=== PATIENT | female | born 1990 | race Caucasian/White ===

== ENCOUNTER 2024-11-05 02:38 | Emergency (ER) | payer OTHER, SELFPAY ==
[2024-11-05 02:43] VITALS: BP 129/88; PULSE 102; RESP 20; TEMP 35.9; O2SAT 99; BMI 30.8
--- NOTE | 2024-11-05 03:59 | ED.EAR ---
HPI - Ear Problem General Chief complaint: Ear Problems Stated complaint: blocked left ear Time Seen by Provider: 11/05/24 03:59 Source: patient Mode of arrival: ambulatory Limitations: no limitations History of Present Illness ED Provider: DR. Madrigal HPI Narrative: 34-year-old female came in for evaluation of left ear pain. Started with right ear pain a week ago seen at urgent care was prescribed oral amoxicillin and ofloxacin ear drops to use in both ears, since then patient started to have left ear pain and pressure, decreased hearing from the left ear. No recent swimming or foreign body in the left ear. No fever, no chills. Related Data Allergies Allergy/AdvReac Type Severity Reaction Status Date / Time No Known Allergies Allergy Verified 11/05/24 02:48 Review of Systems Review of Systems: All other systems are reviewed and are negative Constitutional: Reports as per HPI and Reports no additional constitutional complaints Eyes: Reports as per HPI and Reports no additional eye complaints Reports system reviewed and no additional complaints, except as documented Cardiovascular: Reports as per HPI and Reports no additional cardiovascular complaints Respiratory: Reports as per HPI and Reports no additional respiratory complaints Gastrointestinal: Reports as per HPI and Reports no additional gastrointestinal complaints Genitourinary: Reports no additional female genitourinary complaints Musculoskeletal: Reports no additional musculoskeletal complaints Skin/Breast: Reports system reviewed and no additional complaints, except as docu Psychiatric: Reports no additional psychiatric complaints Endocrine: Reports no additional endocrine complaints Hematologic/Lymphatic: Reports no additional hematologic/lymphatic complaints Allergic/Immunologic: Reports no additional allergic/immunologic complaints Reports system reviewed and no additional complaints, except as documented and Reports Abnormal speech present [facility] Social History Social History Advance Directives: No Do you have a plan to hurt others: No Plan Physical Exam Vital Signs: Vital Signs: Last Vital Signs Temp 96.7 F L 11/05/24 02:43 Pulse 102 H 11/05/24 02:43 Resp 20 11/05/24 02:43 BP 129/88 11/05/24 02:43 Pulse Ox 99 11/05/24 02:43 O2 Del Method Room Air 11/05/24 02:43 BMI result Body Mass Index 30.8 Vital signs have been reviewed and appear to be correct. Blood pressure elevated. Heart rate normal. Respiratory rate normal. Temperature normal. Oxygen saturation normal. Appearance: Alert. Oriented X3. No acute distress. Head: Normal external exam. Normocephalic. Atraumatic. No Horner signs noted. No raccoon eyes noted Eyes: PERRLA. EOMI. Conjunctiva and sclera normal. Eyelids normal. ENT: Left ear exam: Very tender exam, swollen auditory canal on the left side with no exudate, unable to visualize left TM. Pharynx normal. Uvula midline. Moist mucous membranes. No trismus noted. No drooling noted. No muffled voice noted. Neck: Normal inspection. Neck supple. FROM. No adenopathy. Thyroid Normal. No meningeal signs. No neck mass noted. CVS: Normal heart rate and rhythm. Heart sound normal. No murmurs noted. Pulses normal throughout. Respiratory: No respiratory distress. Painless inspiration. Breath sounds normal. No wheezes/rales/rhonchi noted. Chest nontender. No accessory muscle usage noted or decreased air movement noted. Abdomen: Soft and nontender. Bowel sounds normal in all 4 quadrants. No distention noted. No organomegaly noted. No visible injury noted. Back: No CVA tenderness. Full range of motion noted. Skin: Skin warm and dry. Normal skin color. Normal skin turgor. No rashes/lesions/lacerations noted. Extremities: No lower extremity edema. Extremities exhibit normal range of motion. Extremities nontender. Neuro: Oriented X 3. Cranial nerve exam: II-XII are grossly intact No motor deficit. No sensory deficit. Reflexes normal. Course Reevaluation(s) Reevaluation #1: Left otitis externa/continue with amoxicillin and ofloxacin, will give 1 dose of prednisone while in the ED, NSAIDs if needed for pain. Time: 04:17 Medical Decision Making Differential Diagnosis Differential Diagnoses: The differential diagnosis associated with the presentation includes (Left otitis media, left cerumen impaction, left otitis externa) Admission/Observation Consideration of admission/observation: Escalation of care including admission/observation considered Discharge Plan Discharge Clinical Impression: Otitis externa Patient Disposition: Home, Self-Care Instructions: Swimmer's Ear (ED) Additional Instructions: Continue with amoxicillin and ofloxacin ear drop. Print Language: Romanian
[2024-11-05] MEDS: predniSONE 20 MG TABLET 60 MG PO (04:37)
[2024-11-05] MEDS: Ibuprofen 600 MG TABLET PO (04:37)
[2024-11-05 04:43] VITALS: BP 129/88; PULSE 102; RESP 20; TEMP 35.9; O2SAT 99
== END 2024-11-05 04:40 | disposition home or self-care (01) ==
PROVIDERS: Emergency Provider Emergency Medicine
DX: H60.93 Unspecified otitis externa, bilateral (principal)
CPT/HCPCS: 99283; 99284